=== PATIENT | male | born 1950 | race Caucasian/White ===

== ENCOUNTER 2016-11-08 09:16 | Inpatient (IN) | payer BC ==
[2016-10-16 10:48] VITALS: BMI 39.0
--- NOTE | 2016-10-16 11:15 | PAT Medication Instructions ---
Service Date Oct 16, 2016. Current Home Medication List Acetaminophen (Mapap), 1,000 MG PO Q8H PRN for RN Aspirin (Aspirin Ec), 81 MG PO QAM Calcium Carbonate (Tums), 2 TAB PO PRN Celecoxib (CeleBREX), 200 MG PO BID Ondansetron Hcl (Zofran), 8 MG PO PRN PRN for Nausea Medication Instructions For Your Scheduled Surgery - Hold the following medications 7 days prior to surgery per surgeon's instructions: Celecoxib (CeleBREX), 200 MG PO BID - Hold the following medications the morning of surgery: Calcium Carbonate (Tums), 2 TAB PO PRN - Take the following medications the morning of surgery with a sip of water OTHERWISE NOTHING TO EAT OR DRINK AFTER MIDNIGHT: Aspirin (Aspirin Ec), 81 MG PO QAM Acetaminophen (Mapap), 1,000 MG PO Q8H PRN for RN (may take if needed up to 4 hours prior to surgery) Ondansetron Hcl (Zofran), 8 MG PO PRN PRN for Nausea If you have any questions please call us at [phone] or [phone] or [phone]
--- NOTE | 2016-10-16 11:48 | HISTORY & PHYSICAL EXAMINATION ---
DATE OF ADMISSION: 11/08/2016 ATTENDING PHYSICIAN: Isaac Jack DO PROCEDURE: Left knee replacement. HISTORY OF PRESENT ILLNESS: Kaushik is a 66-year-old male who presents for preoperative evaluation prior to left knee replacement. He states he is having pain in this knee for several years now, which has gradually worsened. Notes decreased range of motion and intermittent swelling and weakness. He states the symptoms have been chronic and nontraumatic. He has tried oral anti-inflammatories including ibuprofen and Aleve without relief, had a previous cortisone injection as well without relief. At this point in time, has failed conservative measures and after discussing further care, would like to proceed with left knee replacement. PAST MEDICAL HISTORY: 1. Hypertension. 2. High cholesterol. 3. GERD. 4. BPH. ALLERGIES: KEFLEX CAUSES A RASH. CURRENT MEDICATIONS: 1. Aspirin 81 mg daily. 2. Aleve. PAST SURGICAL HISTORY: 1. Appendectomy in 2000. 2. Cholecystectomy in 2014. 3. Hernia repair in 1984. FAMILY HISTORY: Noncontributory. SOCIAL HISTORY: The patient is . Denies a history of smoking or tobacco use. No alcohol consumption. REVIEW OF SYSTEMS: Otherwise negative. Please see HPI for pertinent positives. PHYSICAL EXAMINATION: VITAL SIGNS: The patient is 5 feet 5 inches, weighs 235 pounds, and BMI is 39. GENERAL: Pleasant 66-year-old male in no acute distress, alert and oriented x3. HEENT: Normocephalic and atraumatic. CARDIAC: Regular rate and rhythm. No murmurs or gallops appreciated. Resting pulse 80 beats a minute. LUNGS: Clear to auscultation without rales or wheeze bilaterally. ABDOMEN: Soft and nontender. Bowel sounds present. EXTREMITIES: Left lower extremity is neurovascularly intact. Calves are soft and nontender. DP pulse +2. Demonstrates good quad tone. Straight leg raise is without lag. There is no erythema or warmth. Has mild effusion. He has positive crepitation with motion, range of motion is 0/3/125. Overall has varus alignment. IMAGING: Review of the left knee showed findings consistent with end-stage DJD. He has complete loss of joint space in the medial compartment with varus alignment, subchondral sclerosis noted as well as peripheral osteophytes. IMPRESSION: 1. 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 2. Gastroesophageal reflux disease. 3. Benign prostatic hypertrophy. 4. Hypertension. 5. High cholesterol. PLAN: Further care discussed with the patient. At this point in time, he has failed conservative measures and would like to proceed with a left knee replacement. We will plan on discharge home with outpatient physical therapy. Placed on aspirin 81 mg p.o. b.i.d. for a month postop. KOMAL
--- NOTE | 2016-10-16 11:59 | DIAGNOSTIC IMAGING REPORT ---
CHEST PREADMISSION(PA/LAT) CLINICAL HISTORY: Preoperative chest COMPARISON STUDY: No previous studies for comparison. FINDINGS: The cardiac and mediastinal contours are normal. There is no evidence of focal pulmonary consolidation. There is no evidence of failure. No pleural effusions are visualized.[ There are linear by basilar atelectatic changes. IMPRESSION: No active disease in the chest. Electronically signed by: Brian Ray M.D. 10/16/2016 11:57 AM Dictated Date/Time: 10/16/2016 11:57 AM
[2016-10-16 12:03] LABS: BASO % 0.3 %; BASO ABS # 0.02 K/uL (0-0.2); COMPLETE YES; EOS % 2.6 %; HEMATOCRIT 44.4 % (42-52); IG% 0.3 %; LYMPH % 29.8 %; LYMPH ABS # 1.83 K/uL (1.2-3.4); MEAN CELL VOLUME 88.8 fL (80-100); MEAN CORPUSCULAR HEMOGLOBIN 30.6 pg (25-34); MEAN CORPUSCULAR HGB CONC 34.5 g/dl (32-36); MEAN PLATELET VOLUME 9.7 fL (7.4-10.4); MONO % 8.6 %; NEUT % 58.4 %; PLATELET COUNT 195 K/uL (130-400); WHITE BLOOD COUNT 6.15 K/uL (4.8-10.8)
[2016-10-16 12:14] LABS: PROTHROMBIN TIME (PATIENT) 10.7 SECONDS (9.0-12.0)
[2016-10-16 12:32] LABS: ESTIMATED AVERAGE GLUCOSE 146 mg/dl; HA1C FLAG Normal (Normal)
[2016-10-16 13:55] LABS: URINE APPEARANCE CLEAR (CLEAR); URINE BILIRUBIN NEG (NEG); URINE COLOR YELLOW; URINE EPITHELIAL CELL AUTO >30 /lpf (0-5); URINE NITRITE NEG (NEG); URINE SPECIFIC GRAVITY 1.022 (1.000-1.030); UROBILINOGEN NEG (NEG)
[2016-10-16 14:00] LABS: BUN/CREATININE RATIO 17.2 (10-20); CALCIUM 8.9 mg/dl (8.5-10.1); CREATININE 0.85 mg/dl (0.60-1.40)
[2016-10-16 14:09] LABS: MANUAL MICROSCOPIC REQUIRED? NO; REVIEW REQ? NO
[2016-11-08] VITALS (8 sets, daily range): BP systolic 100–182; BP diastolic 63–85; PULSE 61–88; TEMP 36.4–36.7; O2SAT 91–98; Ht 165.1 cm; Wt 107.8 kg
[~2016-11-08] VITALS: Ht 165.1 cm; Wt 107.8 kg
[2016-11-08] MEDS: TRANEXAMIC ACID INJ 1,000 MG in SODIUM CHLORIDE 0.9% 100ML 100 ML IV SCH ×2 (06:30→11:28)
--- NOTE | 2016-11-08 08:14 | History & Physical Bridge Note ---
H&P Re-Evaluation Bridge Note: I have examined the patient, reviewed the History & Physical and in the interval since the performance of the History & Physical I have noted the following changes of clinical significance: No changes noted
[~2016-11-08 09:16] MED LIST: ACET500C13 PO; ACETAMINOPHEN 500 MG TAB PO SCH; ASPI81TA28 PO; ATROPINE SULFATE 0.1 MG/ML 5ML SYR IV PRN; BUPIVACAINE 0.25% 30 ML VIAL ONE; BUPIVACAINE 0.5 % 5 MG/1 ML PF 10ML VIAL ONE; CALC500C3 PO; CLB/200 PO; CLINDAMYCIN 600 MG/54 ML D5W 54 ML IV SCH; CeleBREX 200 MG CAP PO SCH; DEXAMETHASONE 4 MG TAB PO SCH; EpHEDrine SULFATE INJ 50 MG/ML AMP IV PRN; FAMOTIDINE 20 MG TAB PO SCH; FENTANYL CITRATE INJ 50 MCG/1 ML 2 ML VIAL IV PRN; GABAPENTIN 300 MG CAP PO SCH; GLC/500 PO; LACTATED RINGER'S 1000ML 1,000 ML IV SCH; LACTATED RINGER'S 1000ML IV SCH; METOCLOPRAMIDE HCL 10 MG TAB PO SCH; ONDA8TAB6 PO; ONDANSETRON INJ 2 MG/ML 2 ML VIAL IV PRN; ROPIVACAINE 5MG/ML 30 ML 150 MG, BUPIVACAINE/EPINEPHR 0.5% MPF 30 ML, KETOROLAC TROMETH... INFIL SCH
[2016-11-08] MEDS ORDERED: MIDAZOLAM HCL 1 MG/ML 2ML VIAL ONE ×2 (11:07)
[2016-11-08] MEDS ORDERED: FENTANYL CITRATE INJ 50 MCG/1 ML 2 ML VIAL ONE (11:08)
[2016-11-08] MEDS ORDERED: PROPOFOL IV EMULSION 10 MG/ML 20 ML VIAL IV ONE (12:00)
[2016-11-08] MEDS ORDERED: LIDOCAINE HCL 2% 2 ML VIAL (20MG/ML) ONE (12:00)
[2016-11-08] MEDS ORDERED: BACITRACIN 50000 UNIT VIAL ONE (12:05)
[2016-11-08] MEDS ORDERED: ORTHO JOINT ANESTHETIC ONE (12:05)
[2016-11-08] MEDS ORDERED: POVIDONE-IODINE OP SOLN 30 ML BTL ONE (12:05)
--- NOTE | 2016-11-08 13:55 | [facility] Operative Report ---
Operative Report Operative Date Nov 08, 2016. Pre-Operative Diagnosis Left knee Degenerative Joint Disease Post-Operative Diagnosis Left knee Degenerative Joint Disease Procedure(s) Performed Left Total Knee Arthroplasty Perez & Nephew journey 2 patient matched with block 4 femur 4 tibia 13 Yamilet 32 oval patella Surgeon Guero [employer] Surgeon(s) Derick Harris PA-C Estimated Blood Loss 5cc Findings Severe end-stage DJD left knee with varus alignment large muscle conservative therapy Specimens A: Left Knee Bone and Tissue Complication(s) None Disposition Recovery Room / PACU Indications Severe end-stage Tri-Chlor milligrams joint disease with varus alignment unresponsive to conservative management including injections physical therapy anti-inflammatories relative rest activity modification Description of Procedure After proper prepping and draping of the left lower extremity anterior midline incision was made over the region of the extensor extensor mechanism after meticulous hemostasis was obtained and maintained in subcutaneous tissues a medial parapatellar incision was made The patella was subluxed lateralward the medial lateral gutter were cleaned from any hypertrophic synovitis and scar tissue of the distal femoral block was placed and the distal femoral osteotomy cut was made subsequently the chamfers anterior and posterior osteotomy cuts were made utilizing the 4-in-1 block the tibia was subsequently subluxed anteriorward medial and ateral meniscal remnants were excised in their entirety remnants of the anterior and posterior cruciate ligaments were excised in their entirety excellent exposure of the proximal tibia was obtained the tibial osteotomy guide was placed on the proximal tibial osteotomy cut was made once again the knee was irrigated with copious amounts of sterile saline solution the patella was subsequently everted lateralward thickened scar tissue around the patella was removed the patella was subsequently cut utilizing a freehand technique and was drilled prepared for final preparation and placement of patella socially flexion-extension gaps were checked and the equal and symmetric trials were placed to the appropriate femoral and tibial trials with poly-spacer being placed for equal flexion and extension gaps and full range of motion including extension to 0 and flexion to 140 the trial components after having been taken to recovery range of motion was subsequently removed meticulous hemostasis was obtained and maintained subsequently a knee block injection of joint cocktail including ropivacaine 0.5% 150 mg. Bupivacaine 0.5 % epinephrine 1-200,030 mL's toradol 30 mg dexamethasone 4 mg ketamine 10 mg clonidine 100 micrograms normal saline solution 30 mg was infiltrated into the soft tissues of the posterior knee medial lateral gutters and periosteal synovium special attention was paid to protect neurovascular structures at all times subsequently trial components having been removed the knee was irrigated with sterile saline solution. debris was removed the proximal tibia was subsequently prepared and was made ready for the placement of the tibial component tibial component was also cemented and tamped into position the femoral component was subsequently placed and cemented in the position the patellar component was subsequently cemented in position because hemostasis once again obtained and maintained wound having been thoroughly irrigated with debridement and debridement lavage was performed as well as a medial parapatellar incision closed with #1 Vicryl in interrupted fashion subcutaneous was closed with #2 Vicryl skin was closed with skin clips. PA-C was necessary for prepping and drapping as well as wound closure of deep fascia Sub cutaneous tissue and skin and was necessary for the case. A sterile compressive dressing was placed patient was taken to recovery in stable condition of report dictated by Guero I attest to the content of the Intraoperative Record and any orders documented therein. Any exceptions are noted below. I attest to the content of the Intraoperative Record and any orders documented therein. Any exceptions are noted below.
[2016-11-08] MEDS ORDERED: PHARMACY GLYCEMIC MGMT CONSULT PRN (14:43)
[2016-11-08] MEDS ORDERED: SOD PHOSPHATE/SOD BIPHOSPHATE ENEMA 132 ML BTL PR PRN (14:45)
[2016-11-08] MEDS ORDERED: MoRPHine SULFATE 2 MG/ML CARP IV PRN (14:45)
[2016-11-08] MEDS ORDERED: MAGNESIUM HYDROXIDE SUSP 30 ML UDC PO PRN (14:45)
[2016-11-08] MEDS ORDERED: BISACODYL 10 MG SUPP PR PRN (14:45)
[2016-11-08] MEDS ORDERED: KETOROLAC TROMETHAMINE 30 MG/ML VIAL IV. PRN (14:45)
[2016-11-08] MEDS ORDERED: ONDANSETRON INJ 2 MG/ML 2 ML VIAL IV PRN (14:45)
[2016-11-08] MEDS ORDERED: CALCIUM CARBONATE 500 MG CHEWABLE PO PRN (14:45)
[2016-11-08] MEDS ORDERED: ZOLPIDEM TARTRATE 5 MG TAB PO PRN (14:45)
[2016-11-08] MEDS ORDERED: ALUMINUM/MAGNESIUM/SIMETH (MAALOX MAX) 30 ML UDC PO PRN (14:45)
[2016-11-08] MEDS ORDERED: GLUCAGON FOR INJ 1 MG VIAL SQ PRN (15:00)
[2016-11-08] MEDS ORDERED: GLUCOSE 10 TABS/TUBE PO PRN (15:00)
[2016-11-08] MEDS ORDERED: GLUCOSE 40% GEL 15 GM TUBE PO PRN (15:00)
[2016-11-08] MEDS ORDERED: DEXTROSE 50% 50 ML SYR IV PRN (15:00)
--- NOTE | 2016-11-08 15:03 | DIAGNOSTIC IMAGING REPORT ---
LEFT KNEE 1 OR 2 VIEWS ROUTINE CLINICAL HISTORY: Postoperative evaluation. COMPARISON: None FINDINGS: Alignment of the total left knee arthroplasty is anatomic. There is no periprosthetic fracture or unexpected radiopaque foreign body. Drains are in place. IMPRESSION: Expected findings following total left knee arthroplasty. Electronically signed by: Roscoe Ruiz M.D. 11/08/2016 3:02 PM Dictated Date/Time: 11/08/2016 3:02 PM
--- NOTE | 2016-11-08 15:08 | Pharmacy Progress Note ---
Glycemic Control Intl Consult Date of Service Nov 08, 2016. Scope Glycemic Pharmacist consulted for glycemic control and to write orders per [facility] inpatient glycemic control protocol Objective Weight (Kilograms): 107.80 Accuchecks BSG (last 24hrs): Test 11/08/16 09:41 11/08/16 14:37 Bedside Glucose 115 mg/dl (70-99) 138 mg/dl (70-99) HbA1c 6.7% on 10/16/16 Recent Pertinent Medications Outpatient Anti-diabetic Regimen: * Metformin 500mg PO daily Risk Factors for Insulin Resistance: * Steroids pre-op * Recent Surgery * Diet Assessment & Plan ASSESSMENT: * Pt is maintained on oral antidiabetic agents as an outpatient with adequate control per recent A1c * Oral agents are not recommended for inpatient use d/t drug interactions, changing PO intake, and difficulty titrating for acute hyper/hypoglycemia. ADA recommends re-initiating outpatient oral agents 1-2 days prior to discharge if/ when appropriate if they were held on admission. * Will hold oral agents for admission and utilize SQ basal bolus insulin regimen which is the recommended regimen for inpatient glycemic control. * Will initiate weight based insulin dosing for insulin milla patient and titrate based on BSG trends. * Will use moderate/severe stress secondary to DXM given preop * ADA & AACE recommend a goal blood sugar range 140-180 mg/dl for the majority of critically ill & non-critically ill patients. However, more stringent targets may be selected in individual cases. Will utilize more stringent goal of 110-140mg/dl based on patient age & comorbidities. Additionally, tighter glycemic control is warranted to facilitate wound/infection healing. PLAN FOR INPATIENT GLYCEMIC CONTROL: * Hold outpatient oral diabetes medications * Will resume POD#1 or 2 depending on PO intake and renal function * Basal insulin * Lantus 20 units if BSG < 180mg/dl * Lantus 30 units if BSG 180mg/dl or above * Bolus insulin * NovoLog per scale ACHS or Q6hrs while NPO * Goal Range: Low 110 mg/dL - High 140 mg/dL * Correction Factor: 20 mg/dL/unit * Nutritional / Prandial insulin per carb ratio of 1 unit per 7 grams CHO consumed * Please note that the plan above was derived based on current level of insulin resistance and hospital stress. These recommendations are appropriate for inpatient admission only. Plan of care upon discharge will need to be reassessed to avoid potential outpatient hypo/hyperglycemia. Thank you.
--- NOTE | 2016-11-08 15:19 | Anesthesiology Progress Note ---
Anesthesia Post Op Note Date & Time Nov 08, 2016 at 15:19 Vital Signs Pain Intensity: 0 Vital Signs Past 12 Hours Date Time Temp Pulse Resp B/P (MAP) Pulse Ox O2 Delivery O2 Flow Rate FiO2 11/08/16 14:33 36.3 75 20 139/80 98 Mask 10 11/08/16 09:47 36.7 72 18 182/85 98 Room Air Notes Mental Status: alert / awake / arousable, participated in evaluation Pt Amnestic to Procedure: Yes Nausea / Vomiting: adequately controlled Pain: adequately controlled Airway Patency, RR, SpO2: stable & adequate BP & HR: stable & adequate Hydration State: stable & adequate Neuraxial Anesthesia: was administered, sensory block is resolving Anesthetic Complications: no major complications apparent
[2016-11-08] MEDS ORDERED: MoRPHine SULFATE 10 MG/ML CARP/VIAL IV PRN (15:30)
[2016-11-08] MEDS ORDERED: MoRPHine SULFATE 4 MG/ML 1 ML CARP\\VIAL IV PRN (15:30)
--- NOTE | 2016-11-08 15:46 | Anesthesiology Progress Note ---
Anesthesia Post Op Note Date & Time Nov 08, 2016 at 15:45 Vital Signs Pain Intensity: 0 Vital Signs Past 12 Hours Date Time Temp Pulse Resp B/P (MAP) Pulse Ox O2 Delivery O2 Flow Rate FiO2 11/08/16 14:33 36.3 75 20 139/80 98 Mask 10 11/08/16 09:47 36.7 72 18 182/85 98 Room Air Notes Mental Status: alert / awake / arousable, participated in evaluation Pt Amnestic to Procedure: Yes Nausea / Vomiting: adequately controlled Pain: adequately controlled Airway Patency, RR, SpO2: stable & adequate BP & HR: stable & adequate Hydration State: stable & adequate Neuraxial Anesthesia: was administered, sensory block is resolving Anesthetic Complications: no major complications apparent
[2016-11-08] MEDS: SODIUM CHLORIDE 0.9% 1000ML 1,000 ML IV SCH ×2 (16:53→23:34)
[2016-11-08] MEDS: INSULIN ASPART 100 UNITS/ML 3 ML PEN SC SCH ×3 (17:15→21:41)
[2016-11-08] MEDS ORDERED: INSULIN GLARGINE SOLOSTAR 100 UNITS/ML 3 ML PEN SC SCH (18:00)
[2016-11-08] MEDS: CLINDAMYCIN IV 600 MG in DEXTROSE 5% 50ML 50 ML IV SCH (20:09)
[2016-11-08] MEDS: DOCUSATE SODIUM 100 MG CAP PO SCH (21:36)
[2016-11-08] MEDS: SENNA 8.6 MG TAB PO SCH (21:36)
[2016-11-08] MEDS: OXYCODONE HCL 10 MG TABCR (OXYCONTIN) PO SCH (21:36)
[2016-11-08] MEDS: ASPIRIN 81 MG ECTAB PO SCH (21:36)
[2016-11-08] MEDS: ACETAMINOPHEN 500 MG TAB PO SCH (21:37)
[2016-11-08] MEDS: OXYCODONE HCL IR 5 MG TAB (IMMEDIATE RELEASE) PO PRN (23:33)
[2016-11-09 03:30] VITALS: BP 154/72; PULSE 63; TEMP 36.6; O2SAT 95
[2016-11-09] MEDS: OXYCODONE HCL IR 5 MG TAB (IMMEDIATE RELEASE) PO PRN ×4 (03:30→23:21)
[2016-11-09] MEDS: CLINDAMYCIN IV 600 MG in DEXTROSE 5% 50ML 50 ML IV SCH (04:26)
[2016-11-09] MEDS: ACETAMINOPHEN 500 MG TAB PO SCH ×3 (05:31→21:44)
[2016-11-09 06:16] LABS: HEMATOCRIT 37.9 % (42-52); MEAN CELL VOLUME 88.8 fL (80-100); MEAN CORPUSCULAR HEMOGLOBIN 30.2 pg (25-34); MEAN PLATELET VOLUME 9.8 fL (7.4-10.4); PLATELET COUNT 183 K/uL (130-400); RED BLOOD COUNT 4.27 M/uL (4.7-6.1); WHITE BLOOD COUNT 12.95 K/uL (4.8-10.8)
[2016-11-09 06:38] LABS: PROTHROMBIN TIME (PATIENT) 10.7 SECONDS (9.0-12.0)
[2016-11-09 06:53] LABS: BUN/CREATININE RATIO 23.1 (10-20); CALCIUM 8.1 mg/dl (8.5-10.1); CREATININE 0.81 mg/dl (0.60-1.40); POTASSIUM 4.2 mmol/L (3.5-5.1)
[2016-11-09 06:58] VITALS: BP 132/75; PULSE 56; TEMP 36.6; O2SAT 96
--- NOTE | 2016-11-09 07:55 | Orthopedic Progress Note ---
Orthopedic Progress Note Date of Service Nov 09, 2016. Subjective Post OP Day: 1 Reports: feeling well, pain controlled w PO medications Objective calves soft nontender, N/V intact, dressing C/D/I, A&O x3, toes mobile, hemovac drainage (50ml to date) Date Time Temp Pulse Resp B/P (MAP) Pulse Ox O2 Delivery O2 Flow Rate FiO2 11/09/16 07:00 Room Air 11/09/16 06:58 36.6 56 19 132/75 (94) 96 Room Air 11/09/16 03:30 36.6 63 18 154/72 (99) 95 Room Air 11/08/16 23:21 36.6 61 16 145/74 (97) 96 Room Air 11/08/16 23:15 Room Air 11/08/16 20:10 36.6 88 18 100/63 (75) 95 Nasal Cannula 4.0 11/08/16 19:10 36.6 78 16 136/79 (98) 97 Nasal Cannula 11/08/16 18:08 79 18 150/84 (106) 91 Nasal Cannula 2.0 11/08/16 17:10 36.5 66 18 138/77 (97) 97 Nasal Cannula 2.0 11/08/16 16:40 36.4 68 18 150/77 (101) 95 Nasal Cannula 2.0 11/08/16 16:10 Nasal Cannula 2.0 11/08/16 16:10 Nasal Cannula 2.0 11/08/16 16:10 36.4 75 16 131/76 (94) 93 Nasal Cannula 2.0 11/08/16 15:58 72 14 11/08/16 15:58 71 14 95 11/08/16 15:53 72 16 11/08/16 15:53 72 16 95 11/08/16 15:51 114/86 11/08/16 15:49 36.7 72 20 151/70 94 Nasal Cannula 2 11/08/16 15:48 73 16 94 11/08/16 15:48 73 16 11/08/16 15:46 151/70 11/08/16 15:43 73 16 11/08/16 15:43 71 16 95 11/08/16 15:41 143/97 11/08/16 15:38 73 23 95 11/08/16 15:38 73 23 11/08/16 15:36 143/72 11/08/16 15:33 71 16 11/08/16 15:33 72 16 94 11/08/16 15:31 146/102 11/08/16 15:28 72 14 95 11/08/16 15:28 72 14 11/08/16 15:26 132/66 11/08/16 15:23 85 13 96 11/08/16 15:23 83 13 11/08/16 15:21 146/81 11/08/16 15:18 72 16 95 11/08/16 15:18 75 16 11/08/16 15:17 147/80 11/08/16 15:13 73 16 11/08/16 15:13 74 16 96 11/08/16 15:11 155/68 11/08/16 15:08 78 15 11/08/16 15:08 78 15 97 11/08/16 15:06 136/71 11/08/16 15:03 74 14 97 11/08/16 15:03 74 14 11/08/16 15:02 137/61 11/08/16 14:58 69 16 96 11/08/16 14:58 68 16 11/08/16 14:56 148/71 11/08/16 14:53 67 18 11/08/16 14:53 69 18 98 11/08/16 14:51 135/66 11/08/16 14:48 68 20 98 11/08/16 14:48 70 20 11/08/16 14:46 132/63 11/08/16 14:43 72 17 11/08/16 14:43 74 17 98 11/08/16 14:41 117/77 11/08/16 14:38 72 17 11/08/16 14:38 72 17 99 11/08/16 14:36 123/68 11/08/16 14:34 139/80 11/08/16 14:33 76 19 11/08/16 14:33 77 19 99 11/08/16 14:33 36.3 75 20 139/80 98 Mask 10 11/08/16 09:47 36.7 72 18 182/85 98 Room Air Laboratory Results 24 Hours: Test 11/09/16 05:35 Hematocrit 37.9 % Hemoglobin 12.9 g/dL Prothromb Time International Ratio 1.0 Prothrombin Time 10.7 SECONDS Assessment & Plan Assessment: POD 1 s/p Left TKA Plan: PT/OT Planning for HH Services Inhouse Planning Pain Management: Toradol, Oxycontin, Morphine, PO Tylenol, Oxy IR DVT Prophylaxis: TEDs, SCDs, ASA Discharge Planning Discharge Planning: home with home health Pain Management: Oxycontin, PO Tylenol, Oxy IR DVT Prophylaxis: TEDs, ASA Therapy: Physical Therapy
[2016-11-09] MEDS: INSULIN GLARGINE SOLOSTAR 100 UNITS/ML 3 ML PEN SC SCH ×2 (08:19→20:53)
[2016-11-09] MEDS: ASPIRIN 81 MG ECTAB PO SCH ×2 (08:29→20:55)
[2016-11-09] MEDS: MULTIVITAMIN TAB PO SCH (08:29)
[2016-11-09] MEDS: OXYCODONE HCL 10 MG TABCR (OXYCONTIN) PO SCH ×2 (08:29→20:55)
[2016-11-09] MEDS: DOCUSATE SODIUM 100 MG CAP PO SCH ×2 (08:29→20:55)
[2016-11-09] MEDS: PANTOprazole SOD 40 MG TAB PO SCH (08:29)
[2016-11-09] MEDS: INSULIN ASPART 100 UNITS/ML 3 ML PEN SC SCH ×4 (08:54→20:53)
[2016-11-09] MEDS: SODIUM CHLORIDE 0.9% 1000ML 1,000 ML IV SCH (10:02)
[2016-11-09 11:21] VITALS: BP 137/75; PULSE 76; TEMP 36.7; O2SAT 97
--- NOTE | 2016-11-09 11:43 | Pharmacy Progress Note ---
Glycemic Control Progress Note Date of Service Nov 09, 2016. Scope Glycemic Pharmacist consulted for glycemic control to write orders per [facility] inpatient glycemic control protocol. Objective Accuchecks BSG (last 24hrs): Test 11/08/16 14:37 11/08/16 15:30 11/08/16 17:15 11/08/16 20:50 Bedside Glucose 138 mg/dl (70-99) 154 mg/dl (70-99) 150 mg/dl (70-99) 157 mg/dl (70-99) Test 11/09/16 05:35 11/09/16 07:53 Random Glucose 144 mg/dl (70-99) Bedside Glucose 134 mg/dl (70-99) Recent Pertinent Medications The patient is currently receiving: * Basal insulin: Lantus 20 units X 1 dose 11/08 pm * Correctional Insulin: Novolog Correction per scale ACHS Goal Range: Low 110 mg/dL - High 140 mg/dL Correction Factor: 18 mg/dL/unit * Prandial insulin: Per carb ratio of 1 unit per 6 grams CHO consumed Outpatient Anti-Diabetic Meds Oral Agents * Metformin 500mg PO daily Assessment & Plan ASSESSMENT: * See progress note from 11/08 for more background info, in short: * Pt receiving SQ basal bolus insulin regimen for hyperglycemia secondary to baseline DM (outpatient regimen on hold),stress/infection, recent surgery * Patient is currently receiving an average of 27 units of insulin per day * 20 units of basal insulin * 7 units of prandial/correctional insulin * BSGs ranging 115 - 157 mg/dl over the past 24hrs * Changes needed to insulin regimen: * AM Fasting BSG = 134 mg/dl. This is in slightly above goal range for patient based on inpatient targets and co-morbidities. Therefore, will order for basal insulin to be given if BSG is greater than 140 mg/dL. I do not anticipate pt to need basal insulin beyond POD #1. * Post-prandial BSGs are near goal. Will slightly tighten CF/CR - may need to change back on 11/10. PLAN FOR INPATIENT GLYCEMIC CONTROL: * Hold outpatient oral diabetes medications * Will resume metformin on 9 am * Basal insulin * Lantus 0-10 units SQ BID * 10 units if BSG is greater than 140 mg/dL * Bolus insulin - tighten parameters * NovoLog per scale ACHS or Q6hrs while NPO * Goal Range: Low 110 mg/dL - High 140 mg/dL * Correction Factor: 18 mg/dL/unit * Nutritional / Prandial insulin per carb ratio of 1 unit per 6 grams CHO consumed RECOMMENDATIONS FOR DISCHARGE: * Adequate outpatient glycemic control evidenced by A1c of 6.7% (10/16/16) * Continue metformin 500 mg PO daily on discharge. * consider titration to goal of 2000 mg per day (increase by 500 mg per week as tolerated) * Please note that the plan above was derived based on current level of insulin resistance and hospital stress. These recommendations are appropriate for inpatient admission only. Plan of care upon discharge will need to be reassessed to avoid potential outpatient hypo/hyperglycemia. Thank you.
--- NOTE | 2016-11-09 11:58 | Discharge Instructions ---
Discharge Instructions Date of Service Nov 09, 2016. Admission Reason for Admission: Left Knee Osteoarthritis Discharge Discharge Diagnosis / Problem: Left Total Knee Replacement Discharge Goals Goal(s): Decrease discomfort, Improve function, Increase independence Activity Recommendations Activity Limitations: as noted below Weightbearing Status: Left weightbearing (as tolerated) . Instructions / Follow-Up Instructions / Follow-Up ACTIVITY RECOMMENDATIONS: SELF CARE INSTRUCTIONS AFTER TOTAL KNEE REPLACEMENT A. You may need to continue a physical therapy program after discharge from the hospital. There are several options available to you. Your doctor will assist you in selecting the best one for you. 1. An out-patient facility 2 to 3 times a week for therapy or home therapy. 2. Continue working on all exercises taught to you in the hospital. Your goals should be to increase bending of your knee to 90 degrees and beyond and to fully straighten your knee. B. You may progress at your own pace from walking with a walker or crutches to a cane; then to no assistive devices. C. Make walking a part of your daily routine. Be up as much as comfortable with rest periods throughout the day. Rest with leg elevation is very important. Use the ice wrap frequently for the first 3-4 weeks. D. There are no restrictions on activities. You may ride in a car, shop, participate in garbage depot worker and all social activities. E. Wear the long elastic stockings (TON hose) 20 hours a day for 2 weeks after surgery. They can be removed several times a day for laundering and for a bath. F. You may shower, no tub baths until cleared by your doctor. SPECIAL CARE INSTRUCTIONS: VERY IMPORTANT TO READ AND REVIEW A. There are a few signs you need to watch for after you are home. Call [facility] if you notice any of the followin. Increased severe knee pain. Some pain is expected especially when you exercise. 2. Increased swelling in your leg or knee; pain or swelling of the calf muscle in either lower leg. 3. Any fluid drainage from the incision. 4. Shortness of breath or chest pain. B. Please call [facility] at if you have any concerns or questions about your operation or recovery. The doctor or his nurse will return your call promptly. C. You must take antibiotics before dental work, bladder, bowel or other surgery. Your doctor will provide you with a permanent care to carry describing this precaution. IMPORTANT: * REMEMBER TO TAKE ASPIRIN, 81 MG, TWICE DAILY FOR 4 WEEKS UNLESS OTHERWISE DIRECTED. THIS IS YOUR BLOOD THINNER. * HIGH RISK PATIENTS MAY BE PRESCRIBED A STRONGER BLOOD THINNER. THIS WILL BE PROVIDED AT DISCHARGE. * CALL IF INCREASED PAIN, REDNESS, DRAINAGE OR FEVER GREATER THAT 101. * WEAR TON HOSE 20 HOURS PER DAY FOR 2 WEEKS. * DERMABOND Prineo- This is a mesh tape dressing that is covered with glue. It should remain in place until the incision is properly healed, usually 10-14 days. This dressing is designed to naturally slough off. You may trim the excess mesh tape as it peels off. Incision may be briefly wet in a shower. Dry immediately by blotting with a clean, dry towel. Do not bath or swim until instructed by your doctor. Do not scratch, rub, or pick at the dressing. Do not apply any topical ointments or lotions until dressing is completely removed and/or instructed by your doctor. There may be a small piece of suture material at one end of your incision. Do not pull or trim this. If it is bothersome or catching on clothing, you may cover it with a band-aid. FOLLOW UP VISIT: If appointment is not already scheduled: Please call [facility] to make a follow-up appointment for 2 weeks after your surgery at . Current Hospital Diet Patient's current hospital diet: Diabetes Type 2 Diet Discharge Diet Recommended Diet: Diabetes Type 2 Diet Procedures Procedures Performed: Left Total Knee Arthroplasty Perez & Nephew waldo 2 patient matched with block 4 femur 4 tibia 13 Yamilet 32 oval patella Pending Studies Studies pending at discharge: no Laboratory Results Hemoglobin A1c Test 10/16/16 11:21 Range/Units Estimated Average Glucose 146 mg/dl Hemoglobin A1c 6.7 H 4.5-5.6 % Medical Emergencies . Who to Call and When: Medical Emergencies: If at any time you feel your situation is an emergency, please call 911 immediately. . Non-Emergent Contact Non-Emergency issues call your: Primary Care Provider, Surgeon . "Provider Documentation" section prepared by Derick Harris. . VTE Core Measure Inpt VTE Proph given/why not?: Other Anticoagulation (ASA 81mg po bid x 1 month ), T.E.[place]van [place], SCD's [place] Drug Monitoring Program Search Results: patient reviewed within database, no issues identified
--- NOTE | 2016-11-09 13:00 | Anesthesiology Progress Note ---
Anesthesia Post Op Note Date & Time Nov 09, 2016 at 12:59 Vital Signs Pain Intensity: 8.0 Vital Signs Past 12 Hours Date Time Temp Pulse Resp B/P (MAP) Pulse Ox O2 Delivery O2 Flow Rate FiO2 11/09/16 11:21 36.7 76 20 137/75 (95) 97 Room Air 11/09/16 07:00 Room Air 11/09/16 06:58 36.6 56 19 132/75 (94) 96 Room Air 11/09/16 03:30 36.6 63 18 154/72 (99) 95 Room Air Notes Mental Status: alert / awake / arousable, participated in evaluation
[2016-11-09] MEDS ORDERED: INSULIN GLARGINE SOLOSTAR 100 UNITS/ML 3 ML PEN SC ONE (13:30)
[2016-11-09 15:43] VITALS: BP 149/86; PULSE 69; TEMP 36.9; O2SAT 97
[2016-11-09] MEDS: CeleBREX 200 MG CAP PO SCH (20:55)
[2016-11-09] MEDS: SENNA 8.6 MG TAB PO SCH (21:44)
[2016-11-09 22:57] VITALS: BP 135/84; PULSE 78; TEMP 36.7; O2SAT 97
[2016-11-10] MEDS: OXYCODONE HCL IR 5 MG TAB (IMMEDIATE RELEASE) PO PRN ×2 (04:05→09:37)
[2016-11-10] MEDS: ACETAMINOPHEN 500 MG TAB PO SCH (05:48)
[2016-11-10 06:33] VITALS: BP 136/80; PULSE 79; TEMP 36.8; O2SAT 98
--- NOTE | 2016-11-10 07:24 | Orthopedic Progress Note ---
Orthopedic Progress Note Date of Service Nov 10, 2016. Subjective Post OP Day: 2 Reports: feeling well, pain controlled w PO medications, Denies: complaints, chest pain, SOB, nausea / vomiting, light headedness, calf pain Objective calves soft nontender, N/V intact, capillary refill less than 2 sec., incision C /D/I, A&O x3, toes mobile Date Time Temp Pulse Resp B/P (MAP) Pulse Ox O2 Delivery O2 Flow Rate FiO2 11/10/16 06:33 36.8 79 16 136/80 (98) 98 Room Air 11/09/16 23:30 Room Air 11/09/16 22:57 36.7 78 16 135/84 (101) 97 Room Air 11/09/16 15:43 36.9 69 17 149/86 (107) 97 Room Air 11/09/16 15:30 Room Air 11/09/16 11:21 36.7 76 20 137/75 (95) 97 Room Air Assessment & Plan Assessment: POD 2 s/p Left TKA Plan: PT/OT Planning for HH Services, plan for d/c home later today after PT Discharge Planning Discharge Planning: home with home health Pain Management: Oxycontin, PO Tylenol, Oxy IR DVT Prophylaxis: TEDs, ASA Therapy: Physical Therapy
[2016-11-10] MEDS ORDERED: ONDA8TAB6 PO (07:27)
[2016-11-10] MEDS: OXYCODONE HCL 10 MG TABCR (OXYCONTIN) PO SCH (07:27)
[2016-11-10] MEDS ORDERED: OXYSR10 PO (07:27)
[2016-11-10] MEDS ORDERED: RXC5 PO (07:27)
[2016-11-10] MEDS ORDERED: CLC100 PO (07:27)
[2016-11-10] MEDS: PANTOprazole SOD 40 MG TAB PO SCH (07:27)
[2016-11-10] MEDS ORDERED: ASPEC81 PO (07:27)
[2016-11-10] MEDS ORDERED: CLB200 PO (07:27)
[2016-11-10] MEDS: MULTIVITAMIN TAB PO SCH (07:28)
[2016-11-10] MEDS: INSULIN ASPART 100 UNITS/ML 3 ML PEN SC SCH (07:34)
--- NOTE | 2016-11-10 08:18 | Discharge Summary ---
Orthopedic Discharge Summary Admission Date/Reason Nov 08, 2016 at 14:38 Left Knee Osteoarthritis. Discharge Date/Disposition Nov 10, 2016 Home with services Diagnosis Principal Diagnosis: left total knee replacement Procedure(s) Performed Left Total Knee Arthroplasty Perez & Nephlalit haas 2 patient matched with block 4 femur 4 tibia 13 Yamilet 32 oval patella Consultations NONE Medication Reconciliation New Medications: Aspirin (Aspirin EC Low Dose) 81 Mg Ectab 81 MG PO BID for 30 Days, #60 TAB Celecoxib (Celebrex) 200 Mg Cap 200 MG PO BID for 30 Days, #60 CAP Docusate Sodium (Docusate Sodium) 100 Mg Cap 100 MG PO BID for 10 Days, #20 CAP Oxycodone HCl (Oxycontin) 10 Mg Tabcr 10 MG PO Q12, #20 Oxycodone HCl (Oxycodone HCl) 5 Mg Tab 5-10 MG PO Q4H PRN for Pain, #60 TAB Continued Medications: Acetaminophen (Mapap) 500 Mg Cap 1000 MG PO Q8H PRN for RN Calcium Carbonate (Tums) 500 Mg Chew 2 TAB PO PRN Metformin Hcl (Glucophage) 500 Mg Tab 500 MG PO DAILY, TAB Ondansetron Hcl (Zofran) 8 Mg Tab 8 MG PO PRN PRN for Nausea, #20 TAB (This prescription has been renewed) Discontinued Medications: Aspirin (Aspirin Ec) 81 Mg Tab 81 MG PO QAM Celecoxib (CeleBREX) 200 Mg Cap 200 MG PO BID, CAP Admission Physical Exam As per Admitting History & Physical. Hospital Course Patient was a same day admission after undergoing a successful left TKA. He tolerated the procedure well. Post-operatively, his activity was progressed and well tolerated. Please refer to daily progress notes and PT notes for complete details. After exam on 11/10/16, patient felt to be stable for discharge home with HHPT. Patient will f/u in the office in 2 weeks for further evaluation including x-rays and incision check, sooner if having any issues or concerns. Below are pertinent labs/studies during their hospital stay: Last Vital Signs Documentation Date Time Temp Pulse Resp B/P (MAP) Pulse Ox O2 Delivery O2 Flow Rate FiO2 11/10/16 06:33 36.8 79 16 136/80 (98) 98 Room Air 11/08/16 20:10 4.0 Last Resulted CBC 11/09/16 05:35 Last Resulted BMP 11/09/16 05:35 Discharge Instructions ACTIVITY RECOMMENDATIONS: SELF CARE INSTRUCTIONS AFTER TOTAL KNEE REPLACEMENT A. You may need to continue a physical therapy program after discharge from the hospital. There are several options available to you. Your doctor will assist you in selecting the best one for you. 1. An out-patient facility 2 to 3 times a week for therapy or home therapy. 2. Continue working on all exercises taught to you in the hospital. Your goals should be to increase bending of your knee to 90 degrees and beyond and to fully straighten your knee. B. You may progress at your own pace from walking with a walker or crutches to a cane; then to no assistive devices. C. Make walking a part of your daily routine. Be up as much as comfortable with rest periods throughout the day. Rest with leg elevation is very important. Use the ice wrap frequently for the first 3-4 weeks. D. There are no restrictions on activities. You may ride in a car, shop, participate in encapsulator and all social activities. E. Wear the long elastic stockings (TON hose) 20 hours a day for 2 weeks after surgery. They can be removed several times a day for laundering and for a bath. F. You may shower, no tub baths until cleared by your doctor. SPECIAL CARE INSTRUCTIONS: VERY IMPORTANT TO READ AND REVIEW A. There are a few signs you need to watch for after you are home. Call [facility] if you notice any of the followin. Increased severe knee pain. Some pain is expected especially when you exercise. 2. Increased swelling in your leg or knee; pain or swelling of the calf muscle in either lower leg. 3. Any fluid drainage from the incision. 4. Shortness of breath or chest pain. B. Please call [facility] at if you have any concerns or questions about your operation or recovery. The doctor or his nurse will return your call promptly. C. You must take antibiotics before dental work, bladder, bowel or other surgery. Your doctor will provide you with a permanent care to carry describing this precaution. IMPORTANT: * REMEMBER TO TAKE ASPIRIN, 81 MG, TWICE DAILY FOR 4 WEEKS UNLESS OTHERWISE DIRECTED. THIS IS YOUR BLOOD THINNER. * HIGH RISK PATIENTS MAY BE PRESCRIBED A STRONGER BLOOD THINNER. THIS WILL BE PROVIDED AT DISCHARGE. * CALL IF INCREASED PAIN, REDNESS, DRAINAGE OR FEVER GREATER THAT 101. * WEAR TON HOSE 20 HOURS PER DAY FOR 2 WEEKS. * DERMABOND Prineo- This is a mesh tape dressing that is covered with glue. It should remain in place until the incision is properly healed, usually 10-14 days. This dressing is designed to naturally slough off. You may trim the excess mesh tape as it peels off. Incision may be briefly wet in a shower. Dry immediately by blotting with a clean, dry towel. Do not bath or swim until instructed by your doctor. Do not scratch, rub, or pick at the dressing. Do not apply any topical ointments or lotions until dressing is completely removed and/or instructed by your doctor. There may be a small piece of suture material at one end of your incision. Do not pull or trim this. If it is bothersome or catching on clothing, you may cover it with a band-aid. FOLLOW UP VISIT: If appointment is not already scheduled: Please call [facility] to make a follow-up appointment for 2 weeks after your surgery at .
[2016-11-10] MEDS: INSULIN GLARGINE SOLOSTAR 100 UNITS/ML 3 ML PEN SC SCH (08:51)
[2016-11-10] MEDS ORDERED: METFORMIN HCL 500 MG TAB PO SCH (09:00)
[2016-11-10] MEDS: ASPIRIN 81 MG ECTAB PO SCH (09:34)
[2016-11-10] MEDS: CeleBREX 200 MG CAP PO SCH (09:34)
[2016-11-10] MEDS: DOCUSATE SODIUM 100 MG CAP PO SCH (09:34)
[2016-11-10 10:16] VITALS: BP 136/80; PULSE 79; TEMP 36.8; O2SAT 98
== END 2016-11-10 11:01 | disposition home health service (06) | DRG 470 ==
LOC: C.ACU 09:16 → C.3E 14:38 → ENRESERV 15:06
PROVIDERS: ADMIT Orthopaedic Surgery; ATTEND Orthopaedic Surgery
PROC: 0SRD0J9 Replacement of Left Knee Joint with Synthetic Substitute, Cemented, Open Approach (ICD-10-PCS; principal; 2016-11-08 12:00)
DX: M17.12 Unilateral primary osteoarthritis, left knee (principal); E11.9 Type 2 diabetes mellitus without complications; I10 Essential (primary) hypertension; E78.00 Pure hypercholesterolemia, unspecified; K21.9 Gastro-esophageal reflux disease without esophagitis; N40.0 Benign prostatic hyperplasia without lower urinary tract symptoms; Z88.1 Allergy status to other antibiotic agents; Z79.82 Long term (current) use of aspirin; Z90.49 Acquired absence of other specified parts of digestive tract